=== PATIENT | female | born 1970 | race Caucasian/White ===

== ENCOUNTER → 2024-01-11 | Day surgery (SDC) | payer MEDICARE ==
[~2024-01-11] MED LIST: ALPRAZOLAM1 MG PO; JARDIANCE25 MG PO; MULTI-VITAMIN1 EACH PO; OZEMPIC0.25 MG/02; SERTRALINE HCL100 MG PO; SYNTHROID100 MCG PO; WELLBUTRIN XL300 MG PO
[2024-01-11] MEDS: LACTATED RINGER'S 1,000 ML ONE (07:08)
[2024-01-11 08:19] VITALS: BP 121/69; PULSE 86; RESP 17; O2SAT 95
== END | disposition home or self-care (01) ==
LOC: ENDO 05:56
PROVIDERS: ATTEND Surgery
DX: K21.9 Gastro-esophageal reflux disease without esophagitis (principal); K31.7 Polyp of stomach and duodenum; R13.10 Dysphagia, unspecified; G47.33 Obstructive sleep apnea (adult) (pediatric); E11.9 Type 2 diabetes mellitus without complications; E03.9 Hypothyroidism, unspecified; E66.01 Morbid (severe) obesity due to excess calories; F41.9 Anxiety disorder, unspecified; F32.A Depression, unspecified; Z91.040 Latex allergy status; Z79.84 Long term (current) use of oral hypoglycemic drugs; Z79.85 Long-term (current) use of injectable non-insulin antidiabetic drugs; Z79.899 Other long term (current) drug therapy; Z68.43 Body mass index [BMI] 50.0-59.9, adult
CPT/HCPCS: 36415; 43251; 82948; 88305; 88342; 93005; J7121; 43239

== ENCOUNTER → 2024-05-30 | Day surgery (SDC) | payer MEDICARE ==
[2024-05-23 09:16] LABS: BASOPHILS % 0.4 % (0.0-1.0); EOSINOPHILS # (AUTO) 0.2 (0.0-0.4); EOSINOPHILS % 2.7 % (0.0-6.0); HEMOGLOBIN 12.6 g/dL (12.0-16.0); LYMPHOCYTES # (AUTO) 2.6 (1.0-3.2); LYMPHOCYTES % 29.4 % (18.0-39.1); MEAN CORPUSCULAR HEMOGLOBIN 29.2 pg (28-32); MEAN CORPUSCULAR HGB CONC 31.5 g/dL (31-35); MEAN CORPUSCULAR VOLUME 92.8 fL (81-99); MONOCYTES # (AUTO) 0.6 (0.2-0.8); MONOCYTES % 6.3 % (4.4-11.3); NEUTROPHILS # (AUTO) 5.5 (2.1-6.9); PLATELET COUNT 299 x10e3/uL (140-360); RED BLOOD COUNT 4.31 x10e6/uL (3.6-5.1); WHITE BLOOD COUNT 8.96 x10e3/uL (4.8-10.8)
[2024-05-23 09:40] LABS: ANION GAP 12.2 mmol/L (8-16); CALCIUM 9.4 mg/dL (8.4-10.2); CREATININE, SERUM 0.9 mg/dL (0.57-1.11); POTASSIUM 4.2 mmol/L (3.5-5.1)
[~2024-05-30] MED LIST changes: +CIPRO500 MG PO; +CRANBERRY200 MG; +ENOXAPARIN SOD INJ 40 MG/0.4 ML SYR SC SCH; +MANNOSE50 GM; +Morphine 2mg Syringe 2 MG/ML SYR IV PRN; +ONDANSETRON HCL INJ 2MG/ML 2ML 2 MG/ML VIAL IV PRN; +SCOPOLAMINE 1 MG PATCH TOP SCH; +SODIUM CHLORIDE 0.9% 1000ML 1,000 ML IV SCH; +VESICARE5 MG PO
== END | disposition home or self-care (01) ==
LOC: OR 08:15
PROVIDERS: ATTEND Surgery
DX: E66.01 Morbid (severe) obesity due to excess calories (principal); Z01.810 Encounter for preprocedural cardiovascular examination; Z01.812 Encounter for preprocedural laboratory examination; Z53.9 Procedure and treatment not carried out, unspecified reason
CPT/HCPCS: 36415; 80048; 85025; 93005

== ENCOUNTER 2024-06-13 06:43 | Inpatient (IN) | payer MEDICARE ==
[~2024-06-13] VITALS: Ht 170.2 cm; Wt 137.9 kg
[~2024-06-13 06:43] MED LIST changes: -ENOXAPARIN SOD INJ 40 MG/0.4 ML SYR SC SCH; -Morphine 2mg Syringe 2 MG/ML SYR IV PRN; -ONDANSETRON HCL INJ 2MG/ML 2ML 2 MG/ML VIAL IV PRN; -SCOPOLAMINE 1 MG PATCH TOP SCH; -SODIUM CHLORIDE 0.9% 1000ML 1,000 ML IV SCH
[2024-06-13] MEDS: LACTATED RINGER'S 1,000 ML ONE (07:58)
[2024-06-13] MEDS: CEFAZOLIN SODIUM 2 GM ONE (07:59)
[2024-06-13] MEDS: SCOPOLAMINE 1 MG PATCH ONE (07:59)
[2024-06-13] MEDS ORDERED: PROPOFOL IV EMULSION 10 MG/ML 20 ML VIAL ONE (08:34)
[2024-06-13] MEDS ORDERED: ACETAMINOPHEN 1000 MG/100 ML 100 ML IV ONE (08:34)
[2024-06-13] MEDS ORDERED: FENTANYL CITRATE/PF 100MCG/2 ML INJ ONE ×2 (08:34→10:25)
[2024-06-13] MEDS ORDERED: LIDOCAINE HCL 2% LOCAL INJ 5 ML SDV VIAL INJ ONE (08:35)
[2024-06-13] MEDS ORDERED: ROCURONIUM BROMIDE 1 ML IV ONE (08:35)
[2024-06-13] MEDS ORDERED: KETAMINE HCL INJ 50 MG/ML 10 ML VIAL ONE ×2 (08:59→10:01)
[2024-06-13] MEDS ORDERED: NEOSTIGMINE 1 MG/ML 10ML VIAL ONE (09:00)
[2024-06-13] MEDS ORDERED: GLYCOPYRROLATE INJ 0.2 MG/ML VIAL ONE ×2 (09:00→10:01)
[2024-06-13] MEDS: SCOPOLAMINE 1 MG PATCH TOP SCH (10:00)
[2024-06-13] MEDS ORDERED: DEXAMETHASONE SOD PHOS INJ 4 MG/ML SDV ONE (10:01)
[2024-06-13] MEDS ORDERED: METOCLOPRAMIDE HCL 10 MG/2ML VIAL ONE (10:01)
[2024-06-13] MEDS ORDERED: ESMOLOL HCL 100MG/10ML 10 MG/ML VIAL ONE (10:46)
[2024-06-13 12:43] VITALS: BP 141/76; PULSE 76; RESP 16; TEMP 97.3; O2SAT 96
[2024-06-13 13:00] VITALS: BP 141/76; PULSE 76; RESP 16; TEMP 97.3; O2SAT 96
[2024-06-13 13:01] VITALS: PULSE 75; RESP 14; O2SAT 96
[2024-06-13] MEDS: SODIUM CHLORIDE 0.9% 1000ML 1,000 ML IV SCH (13:17)
[2024-06-13 16:10] VITALS: BP 157/68; PULSE 93; RESP 17; TEMP 97.1; O2SAT 95
[2024-06-13 19:00] VITALS: PULSE 86; RESP 16; O2SAT 92
[2024-06-13 20:00] VITALS: BP 173/65; PULSE 101; RESP 18; TEMP 98.2; O2SAT 97
[2024-06-13] MEDS: ENOXAPARIN SOD INJ 40 MG/0.4 ML SYR SC SCH (21:39)
[2024-06-13] MEDS: Morphine 2mg Syringe 2 MG/ML SYR IV PRN (21:44)
[2024-06-13] MEDS: ONDANSETRON HCL INJ 2MG/ML 2ML 2 MG/ML VIAL IV PRN (21:46)
[2024-06-14] VITALS (7 sets, daily range): BP systolic 118–156; BP diastolic 52–78; PULSE 63–82; RESP 16–20; TEMP 97.7–99; O2SAT 93–98
[2024-06-14 05:30] LABS: INR 1.07; PROTHROMBIN TIME 14.6 seconds (11.9-14.5)
[2024-06-14 08:13] LABS: BASOPHILS % 0.2 % (0.0-1.0); HEMATOCRIT 37.9 % (34.2-44.1); LYMPHOCYTES # (AUTO) 2.2 (1.0-3.2); MEAN CORPUSCULAR HEMOGLOBIN 29.2 pg (28-32); MEAN CORPUSCULAR HGB CONC 31.7 g/dL (31-35); MEAN CORPUSCULAR VOLUME 92.2 fL (81-99); MONOCYTES # (AUTO) 0.8 (0.2-0.8); MONOCYTES % 5.2 % (4.4-11.3); NEUTROPHILS # (AUTO) 12.3 (2.1-6.9); NEUTROPHILS % 80.1 % (38.7-80.0); PLATELET COUNT 348 x10e3/uL (140-360); RED BLOOD COUNT 4.11 x10e6/uL (3.6-5.1); RED CELL DISTRIBUTION WIDTH 15.1 % (11.7-14.4)
[2024-06-14 08:28] LABS: ALBUMIN 3.2 g/dL (3.5-5.0); ALBUMIN/GLOBULIN RATIO 0.9 (0.8-2.0); ANION GAP 13.5 mmol/L (8-16); BILIRUBIN,TOTAL 0.3 mg/dL (0.2-1.2); CALCIUM 8.8 mg/dL (8.4-10.2); CREATININE, SERUM 0.81 mg/dL (0.57-1.11); POTASSIUM 4.5 mmol/L (3.5-5.1); TOTAL PROTEIN 6.8 g/dL (6.5-8.1)
[2024-06-14 08:39] LABS: MAGNESIUM 2.2 MG/DL (1.3-2.1); PHOSPHORUS 2.7 MG/DL (2.3-4.7)
[2024-06-14] MEDS: HYDROCODONE/APAP 7.5MG-325MG 1 EA TAB PO PRN (13:13)
== END 2024-06-14 13:25 | disposition home or self-care (01) | DRG 620 ==
LOC: OR 06:43 → PACU V 09:49 → MED/SURG 12:35
PROVIDERS: ADMIT Internal Medicine; ATTEND Internal Medicine
PROC: 0FB24ZX Excision of Left Lobe Liver, Percutaneous Endoscopic Approach, Diagnostic (ICD-10-PCS; 2024-06-13)
PROC: 0WQF4ZZ Repair Abdominal Wall, Percutaneous Endoscopic Approach (ICD-10-PCS; 2024-06-13)
PROC: 0JH83VZ Insertion of Infusion Pump into Abdomen Subcutaneous Tissue and Fascia, Percutaneous Approach (ICD-10-PCS; 2024-06-13)
PROC: 0WHG43Z Insertion of Infusion Device into Peritoneal Cavity, Percutaneous Endoscopic Approach (ICD-10-PCS; 2024-06-13)
PROC: 3E0M3BZ Introduction of Anesthetic Agent into Peritoneal Cavity, Percutaneous Approach (ICD-10-PCS; 2024-06-13)
PROC: 0DB64Z3 Excision of Stomach, Percutaneous Endoscopic Approach, Vertical (ICD-10-PCS; principal; 2024-06-13 09:55)
DX: E66.01 Morbid (severe) obesity due to excess calories (principal); K43.6 Other and unspecified ventral hernia with obstruction, without gangrene; Z68.42 Body mass index [BMI] 45.0-49.9, adult; K74.60 Unspecified cirrhosis of liver; K76.0 Fatty (change of) liver, not elsewhere classified; G89.18 Other acute postprocedural pain; I10 Essential (primary) hypertension; E11.69 Type 2 diabetes mellitus with other specified complication; Z79.84 Long term (current) use of oral hypoglycemic drugs; E03.9 Hypothyroidism, unspecified; R16.2 Hepatomegaly with splenomegaly, not elsewhere classified; N85.9 Noninflammatory disorder of uterus, unspecified; N32.81 Overactive bladder; G47.33 Obstructive sleep apnea (adult) (pediatric); F32.9 Major depressive disorder, single episode, unspecified; F41.9 Anxiety disorder, unspecified; Z71.3 Dietary counseling and surveillance; Z97.5 Presence of (intrauterine) contraceptive device; Z71.81 Spiritual or religious counseling; Z79.899 Other long term (current) drug therapy
CPT/HCPCS: 36415; 80053; 81025; 82948; 83735; 84100; 85025; 85610; 88304; 88307; 88313; 94799; 99252; C1894; C9804; J1100; J1650; J2003; J2270; J2405; J2710; J2765; J7030